=== PATIENT | male | born 1990 | race African-American/Black ===

== ENCOUNTER 2016-11-22 01:26 | Emergency (ER) | payer SELFPAY ==
[~2016-11-22] VITALS: Ht 180.3 cm; Wt 85.8 kg
[2016-11-22 01:29] VITALS: BP 128/79
[2016-11-22] MEDS ORDERED: PEN-VEE K,VEET500 MG PO (02:08)
[2016-11-22] MEDS ORDERED: MOTRIN800 MG PO (02:08)
[2016-11-23] MEDS ORDERED: DESYREL100 MG PO (23:24)
== END 2016-11-22 02:24 | disposition home or self-care (01) ==
LOC: EME 01:26 → EXP 01:26
PROC: 3E0T3BZ Introduction of Anesthetic Agent into Peripheral Nerves and Plexi, Percutaneous Approach (ICD-10-PCS; principal; 2016-11-22)
DX: K03.81 Cracked tooth (principal); K02.9 Dental caries, unspecified; F17.200 Nicotine dependence, unspecified, uncomplicated
CPT/HCPCS: 99281; 99283

== ENCOUNTER 2016-11-23 19:30 | Emergency (ER) | payer SELFPAY ==
[~2016-11-23] VITALS: Ht 180.3 cm; Wt 85.5 kg
[~2016-11-23 19:30] MED LIST: MOTRIN800 MG PO; PEN-VEE K,VEET500 MG PO
[2016-11-23 20:14] LABS: HEMATOCRIT 47.7 % (38.0-50.0); MCH 27.8 PG (29.0-34.0); MCHC 33.1 G/DL (30.0-36.0); MEAN PLAT.VOLUME 9.1 uM^3 (9.0-12.4); PLATELET COUNT 273 K/uL (156-360); RBC DIS.WIDTH-CV 13.2 % (11.8-14.6); RBC DIS.WIDTH-SD 40.4 % (39-53); RED BLOOD COUNT 5.68 M/uL (4.00-5.50); WHITE BLOOD COUNT 8.3 K/uL (4.1-10.2)
[2016-11-23 20:21] LABS: CHLORIDE 104 mEq/L (99-109); POTASSIUM 4.5 mEq/L (3.7-5.4)
[2016-11-23 20:22] LABS: SODIUM 139 mEq/L (136-147)
[2016-11-23 20:23] LABS: GLUCOSE 80 mg/dL (70-99)
[2016-11-23 20:25] LABS: ANION GAP 11 MEQ/L (2-14)
[2016-11-23 20:26] LABS: SERUM ETHYL ALCOHOL < 10 mg/dL
[2016-11-23 20:27] LABS: GFR ESTIMATE (CALCULATED) > 59 mL/min/
[2016-11-23 20:28] LABS: UREA NITROGEN (BUN) 10 mg/dL (9-23)
[2016-11-23 21:42] LABS: AMPHETAMINE NEGATIVE (500 ng/mL); BARBITURATES NEGATIVE (200 ng/mL); BENZODIAZEPINES NEGATIVE (150 ng/mL); COCAINE NEGATIVE (150 ng/mL); INTERNAL CONTROLS VALID? YES; METHADONE NEGATIVE (200 ng/mL); METHAMPHETAMINE NEGATIVE (500 ng/mL); OPIATES (MORPHINE) NEGATIVE (100 ng/mL); OXYCODONE NEGATIVE (100 ng/mL); PHENCYCLIDINE NEGATIVE (25 ng/mL); PROPOXYPHENE NEGATIVE (300 ng/mL); THC CANNABINOIDS NEGATIVE (50 ng/mL); TRICYCLIC ANTIDEPRESSANTS NEGATIVE (300 ng/mL)
[2016-11-23] MEDS ORDERED: DESYREL100 MG PO (23:24)
[2016-11-23 23:49] VITALS: BP 122/76
== END 2016-11-23 23:49 | disposition home or self-care (01) ==
LOC: EME 19:30
DX: F25.9 Schizoaffective disorder, unspecified (principal); Z76.0 Encounter for issue of repeat prescription; F17.200 Nicotine dependence, unspecified, uncomplicated
CPT/HCPCS: 80048; 85027; 90839; 99281; 99285; G0480

== ENCOUNTER 2017-02-16 03:39 | Emergency (ER) | payer OTHER ==
[~2017-02-16] VITALS: Ht 180.3 cm; Wt 82.8 kg
[~2017-02-16 03:39] MED LIST changes: +DESYREL100 MG PO
[2017-02-16 04:24] LABS: EOSINOPHIL (%) 1.2 % (0-5); EOSINOPHIL COUNT 0.1 K/uL (0-0.3); HEMATOCRIT 43.9 % (38.0-50.0); IMMATURE GRANULOCYTE (%) 0.3 % (0.0-0.7); INSTRUMENT ABS NEUTROPHIL CT 5.6 K/uL; LYMPHOCYTE COUNT 2.5 K/uL (1.0-2.8); MCH 27.3 PG (29.0-34.0); MCHC 32.8 G/DL (30.0-36.0); MCV 83.3 FL (86-99); MEAN PLAT.VOLUME 9.2 uM^3 (9.0-12.4); MONOCYTE (%) 9.6 % (3-12); MONOCYTE COUNT 0.9 K/uL (0-0.8); NEUTROPHIL (%) 61.2 % (45-76); NEUTROPHIL COUNT 5.6 K/uL (1.8-6.4); PLATELET COUNT 292 K/uL (156-360); RBC DIS.WIDTH-CV 13.3 % (11.8-14.6); RBC DIS.WIDTH-SD 40.4 % (39-53); RED BLOOD COUNT 5.27 M/uL (4.00-5.50); WHITE BLOOD COUNT 9.2 K/uL (4.1-10.2)
[2017-02-16 04:34] LABS: CHLORIDE 106 mEq/L (99-109); POTASSIUM 3.9 mEq/L (3.7-5.4)
[2017-02-16 04:35] LABS: SODIUM 140 mEq/L (136-147)
[2017-02-16 04:37] LABS: GLUCOSE 115 mg/dL (70-99)
[2017-02-16 04:38] LABS: ANION GAP 6 MEQ/L (2-14)
[2017-02-16 04:39] LABS: TOTAL BILIRUBIN 0.3 mg/dL (0.0-1.0)
[2017-02-16 04:40] LABS: ALKALINE PHOSPHATASE 77 IU/L (3-129); GFR ESTIMATE (CALCULATED) > 59 mL/min/
[2017-02-16 04:42] LABS: UREA NITROGEN (BUN) 9 mg/dL (9-23)
[2017-02-16] MEDS ORDERED: MIRALAX17 GM PO (04:59)
[2017-02-16] MEDS ORDERED: COLACE100 MG PO (04:59)
[2017-02-16 05:21] VITALS: BP 125/90
== END 2017-02-16 05:23 | disposition home or self-care (01) ==
LOC: EME → EDBD 03:39 → EME 03:39
PROVIDERS: Emergency Medicine
DX: K59.00 Constipation, unspecified (principal); F17.200 Nicotine dependence, unspecified, uncomplicated
CPT/HCPCS: 74176; 80053; 85025; 99281; 99284